=== PATIENT | female | born 1935 | race Caucasian/White ===

== ENCOUNTER 2016-11-06 23:40 | Emergency (ER) | payer MEDICARE, BC ==
[~2016-11-06] VITALS: Ht 167.6 cm; Wt 92.0 kg
[~2016-11-06 23:40] MED LIST: ALEVE220 M2 PO; ALPHAGAN5 ML OU; ASPIRIN81 MG OR; ASPIRIN81 MG PO; ATENOLOL25 MG PO; AVELOX400 MG PO; BENAZEPRIL10 MG; HYDROCHLOROT12.5 MG PO; HYDROCO/APAP1 TA9 PO; KLOR-CON M2020 MEQ OR; LATANOPROST0.005 % OU; LEVOTHYROXIN25 MCG; LISINOP/HCTZ1 TA1 OR; LISINOPRIL20 MG PO; LOPRESSOR50 MG PO; LORTAB 5 PO; Levaquin PO; MINOCYCLINE100 MG PO; NORCO1 TAB OR; OXY1; POT CHLORIDE10 ME5 OR; PREDNISONE10 MG PO; PREDNISONE20 MG PO; PREDNISONE5 MG OR; PRILOSEC20 MG PO; PROAIR HFA IN; PROBIOTIC1 TAB PO; RESTORIL15 MG PO; SIMVASTATIN40 MG PO; SPIRIVA HANDIHALER IN; SYMBICORT 80-4.5MCG IN; TRAMADOL HCL50 MG; TRAMADOL HCL50 MG PO; VANCOMYCIN HCL250 MG PO; VITAMIN B-12500 MCG PO; VITAMIN D-31000 UNIT PO; VITAMIN D400 MG PO; XALATAN 0.005%2.5 ML OP; XOPENEX0.63 MG IN; ZOCOR40 MG OR
[2016-11-07] MEDS ORDERED: SPIRIVA HANDIHALER IN (00:33)
[2016-11-07 01:02] VITALS: BP 150/74
== END 2016-11-07 01:02 | disposition home or self-care (01) ==
LOC: ED 23:40
DX: S51.811A Laceration without foreign body of right forearm, initial encounter (principal); S71.112A Laceration without foreign body, left thigh, initial encounter; S81.012A Laceration without foreign body, left knee, initial encounter; J44.9 Chronic obstructive pulmonary disease, unspecified; I10 Essential (primary) hypertension; K21.9 Gastro-esophageal reflux disease without esophagitis; E78.00 Pure hypercholesterolemia, unspecified; G89.29 Other chronic pain; M54.9 Dorsalgia, unspecified; W18.39XA Other fall on same level, initial encounter

== ENCOUNTER 2017-01-29 16:20 | Inpatient (IN) | payer MEDICARE, BC ==
[~2017-01-29] VITALS: Ht 167.6 cm; Wt 94.2 kg
[2017-01-29 17:10] VITALS: BP 139/69
[2017-01-29] MEDS ORDERED: LISINOP/HCTZ1 TA1 PO (19:42)
[2017-01-29] MEDS ORDERED: LOPRESSOR 550 MG/TAB PO (19:43)
[2017-01-29] MEDS ORDERED: LASIX20 MG PO (19:45)
[2017-01-29 20:21] LABS: HEMATOCRIT 36.9 % (37.0-47.0); HEMOGLOBIN 11.8 g/dl (12.0-16.0); MEAN CORPUSCULAR HGB 27.5 pG CALC (26.0-32.0); RED BLOOD COUNT 4.29 mill/uL (4.20-5.60)
[2017-01-29 20:28] LABS: ALBUMIN 3.6 g/dL (3.2-5.0); ALKALINE PHOSPHATASE 89 u/l (38-126); ANION GAP 12 (6-22 (CALC)); BILIRUBIN, TOTAL 0.6 mg/dL (0.0-1.4); BUN 31 mg/dL (8-23); BUN/CREATININE RATIO 36 (12-20 (CALC)); CALCIUM 9.3 mg/dL (8.4-10.2); CARBON DIOXIDE 38 mmol/l (22-30); CHLORIDE 93 mmol/l (95-108); CREATININE 0.9 mg/dL (0.5-1.0); GFR 60 ML/MIN (>=60 (CALC)); GFR FOR AFR.AMER. > 60 ML/MIN (>=60 (CALC)); GLUCOSE 156 mg/dL (82-115); SGOT/AST 15 u/l (9-36); SGPT/ALT 27 u/l (11-66); SODIUM 139 mmol/l (137-146); TOTAL PROTEIN 6.3 g/dL (6.3-8.2)
[2017-01-29 20:35] VITALS: BP 127/55
[2017-01-30 00:26] LABS: URINE BILIRUBIN - DIPSTICK NEGATIVE (NEGATIVE); URINE BLOOD DIPSTICK TRACE-INTACT (NEGATIVE); URINE CLARITY SLIGHT CLOUDY; URINE COLOR YELLOW; URINE GLUCOSE - DIPSTICK NEGATIVE (NEGATIVE); URINE KETONE NEGATIVE (NEGATIVE); URINE LEUK ESTERASE SMALL (Negative); URINE NITRITE - DIPSTICK POSITIVE (Negative); URINE PH 7.5 (4.5-8.0); URINE PROTEIN - DIPSTICK NEGATIVE (NEG-TRACE)
[2017-01-30 00:27] VITALS: BP 133/71
[2017-01-30 00:34] LABS: URINE BACTERIA MANY hpf; URINE RBC 0-2 RBC/hpf (0-5); URINE SQUAMOUS EPITHELIAL CELL RARE EPI/hpf (0-FEW); URINE WBC 20-50 WBC/hpf (0-5)
[2017-01-30 03:52] VITALS: BP 147/82
[2017-01-30 07:51] VITALS: BP 137/50
[2017-01-30 08:58] LABS: ANION GAP 13 (6-22 (CALC)); BUN 30 mg/dL (8-23); BUN/CREATININE RATIO 43 (12-20 (CALC)); CALCIUM 9.1 mg/dL (8.4-10.2); CARBON DIOXIDE 34 mmol/l (22-30); CHLORIDE 93 mmol/l (95-108); CREATININE 0.7 mg/dL (0.5-1.0); GFR > 60 ML/MIN (>=60 (CALC)); GFR FOR AFR.AMER. > 60 ML/MIN (>=60 (CALC)); GLUCOSE 194 mg/dL (82-115); POTASSIUM 3.4 mmol/l (3.5-5.1); SODIUM 137 mmol/l (137-146)
[2017-01-30 11:24] LABS: C. DIFFICILE TOXIN A&B NEGATIVE (NEGATIVE)
[2017-01-30 11:34] VITALS: BP 121/52
[2017-01-30 15:41] VITALS: BP 126/57
== END 2017-01-30 16:10 | disposition short-term general hospital (02) | DRG 70 ==
LOC: MS2 16:20
PROVIDERS: Internal Medicine; ADMIT Internal Medicine; ATTEND Internal Medicine
DX: G93.89 Other specified disorders of brain (principal); G93.6 Cerebral edema; Z99.81 Dependence on supplemental oxygen; J44.9 Chronic obstructive pulmonary disease, unspecified; N39.0 Urinary tract infection, site not specified; I10 Essential (primary) hypertension; E78.5 Hyperlipidemia, unspecified; E87.6 Hypokalemia; G89.29 Other chronic pain; M54.9 Dorsalgia, unspecified; Z86.19 Personal history of other infectious and parasitic diseases; Z99.3 Dependence on wheelchair; Z87.891 Personal history of nicotine dependence

== ENCOUNTER 2017-02-24 19:33 | Emergency (ER) | payer MEDICARE, BC ==
[~2017-02-24] VITALS: Ht 167.6 cm; Wt 96.0 kg
[~2017-02-24 19:33] MED LIST changes: +LASIX20 MG PO; +LISINOP/HCTZ1 TA1 PO; +LOPRESSOR 550 MG/TAB PO
[2017-02-24 21:05] VITALS: BP 142/63
== END 2017-02-24 20:43 | disposition home or self-care (01) ==
LOC: ED 19:33
PROC: 0HQLXZZ Repair Left Lower Leg Skin, External Approach (ICD-10-PCS; principal; 2017-02-24)
DX: S81.812A Laceration without foreign body, left lower leg, initial encounter (principal); J44.9 Chronic obstructive pulmonary disease, unspecified; I10 Essential (primary) hypertension; K21.9 Gastro-esophageal reflux disease without esophagitis; E78.00 Pure hypercholesterolemia, unspecified; G89.29 Other chronic pain; M54.9 Dorsalgia, unspecified; W01.0XXA Fall on same level from slipping, tripping and stumbling without subsequent striking against object, initial encounter; Y92.009 Unspecified place in unspecified non-institutional (private) residence as the place of occurrence of the external cause

== ENCOUNTER 2017-03-03 07:17 | Inpatient (IN) | payer MEDICARE, BC ==
[~2017-03-03] VITALS: Ht 167.6 cm; Wt 95.0 kg
[2017-03-03 08:18] LABS: HEMATOCRIT 45.2 % (37.0-47.0); IMMATURE GRANULOCYTES 2.3 % (0.0-1.0); MEAN CELL VOLUME 84.3 fL CALC (80.0-100.0); MEAN CORPUSCULAR HGB CONC 33.2 g/L CALC (32.0-36.0); PLATELET COUNT 169 thou/uL (130-400); RED BLOOD COUNT 5.36 mill/uL (4.20-5.60)
[2017-03-03 08:41] LABS: ALBUMIN 3.6 g/dL (3.2-5.0); BILIRUBIN, TOTAL 1.7 mg/dL (0.0-1.4); CREATININE 1.4 mg/dL (0.5-1.0); POTASSIUM 4.6 mmol/l (3.5-5.1); TOTAL PROTEIN 6.4 g/dL (6.3-8.2)
[2017-03-03 08:56] LABS: C. DIFFICILE TOXIN A&B NEGATIVE (NEGATIVE)
[2017-03-03 09:04] LABS: MANUAL DIFFERENTIAL YES
[2017-03-03 09:05] LABS: BAND 15 % (0-8); TOXIC GRANULATION MODERATE
[2017-03-03 09:19] LABS: URINE BILIRUBIN - DIPSTICK NEGATIVE (NEGATIVE); URINE BLOOD DIPSTICK SMALL (NEGATIVE); URINE COLOR YELLOW; URINE GLUCOSE - DIPSTICK 500 mg/dL (NEGATIVE); URINE KETONE NEGATIVE (NEGATIVE); URINE NITRITE - DIPSTICK NEGATIVE (Negative); URINE PROTEIN - DIPSTICK NEGATIVE (NEG-TRACE); URINE SPECIFIC GRAVITY 1.025; URINE UROBILINOGEN - DIPSTICK 0.2 E.U./dL (0.2)
[2017-03-03 09:21] LABS: URINE CLARITY SLIGHT CLOUDY; URINE EPITHELIAL CELLS FEW EPI/hpf (0-FEW); URINE LEUK ESTERASE TRACE (NEGATIVE); URINE RBC 0-2 RBC/hpf (0-5); URINE WBC 0-2 WBC/hpf (0-5)
[2017-03-03 11:45] VITALS: BP 132/42
[2017-03-03 16:00] VITALS: BP 139/78
[2017-03-03 19:07] VITALS: BP 127/66
[2017-03-04 04:13] VITALS: BP 130/75
[2017-03-04 06:33] LABS: HEMATOCRIT 39.9 % (37.0-47.0); HEMOGLOBIN 13.4 g/dl (12.0-16.0); MEAN CELL VOLUME 84.9 fL CALC (80.0-100.0); MEAN CORPUSCULAR HGB 28.5 pG CALC (26.0-32.0); MEAN CORPUSCULAR HGB CONC 33.6 g/L CALC (32.0-36.0); PLATELET COUNT 134 thou/uL (130-400); RED CELL DISTRI WIDTH 15.5 % (11.5-15.5)
[2017-03-04 07:23] LABS: ANION GAP 14 (6-22 (CALC)); BUN 41 mg/dL (8-23); BUN/CREATININE RATIO 73 (12-20 (CALC)); CALCIUM 8.7 mg/dL (8.4-10.2); CARBON DIOXIDE 29 mmol/l (22-30); CHLORIDE 95 mmol/l (95-108); CREATININE 0.6 mg/dL (0.5-1.0); GFR > 60 ML/MIN (>=60 (CALC)); GFR FOR AFR.AMER. > 60 ML/MIN (>=60 (CALC)); GLUCOSE 206 mg/dL (82-115); MAGNESIUM 1.9 mg/dL (1.6-2.3); POTASSIUM 3.9 mmol/l (3.5-5.1); SODIUM 135 mmol/l (137-146)
[2017-03-04 07:34] LABS: BAND 4 % (0-8); MANUAL DIFFERENTIAL YES
[2017-03-04 08:00] VITALS: BP 100/59
[2017-03-04 16:00] VITALS: BP 132/75
[2017-03-04 19:40] VITALS: BP 127/70
[2017-03-05 02:56] VITALS: BP 140/62
[2017-03-05 08:11] VITALS: BP 124/79
== END 2017-03-05 13:44 | disposition hospice, inpatient (51) | DRG 871 ==
LOC: ED 07:17 → ED-I 09:42 → ED 10:47 → MS2 10:48
PROVIDERS: Emergency Medicine; Nurse Practitioner Family; ADMIT Internal Medicine; ATTEND Internal Medicine
DX: A41.9 Sepsis, unspecified organism (principal); J18.9 Pneumonia, unspecified organism; N17.9 Acute kidney failure, unspecified; A04.7 Enterocolitis due to Clostridium difficile; C71.1 Malignant neoplasm of frontal lobe; J44.0 Chronic obstructive pulmonary disease with (acute) lower respiratory infection; E87.2 Acidosis; E86.0 Dehydration; E87.1 Hypo-osmolality and hyponatremia; R65.20 Severe sepsis without septic shock; I10 Essential (primary) hypertension; K21.9 Gastro-esophageal reflux disease without esophagitis; E78.5 Hyperlipidemia, unspecified; G89.29 Other chronic pain; M54.9 Dorsalgia, unspecified; Z98.890 Other specified postprocedural states; Z99.81 Dependence on supplemental oxygen; Z51.5 Encounter for palliative care; Z66 Do not resuscitate; Z92.3 Personal history of irradiation; Z87.891 Personal history of nicotine dependence
CPT/HCPCS: J0692